=== PATIENT | female | born 1965 | race Caucasian/White ===

== ENCOUNTER → 2016-10-18 | Outpatient (CLI) | payer OTHER ==
[~2016-10-18] MED LIST: /ONDA4TA OR; /PRAV20TA OR; ACET500C OR; ASPI81TA45 OR; CHOL4POW3 PO; CLON0.5T PO; DEXI60CA PO; FIORICET OR; NITR0.4S SL; PRIL40CA OR; TOPI25TA2 OR; TRAM50TA2 OR; VITAMIN D50000 UNT OR; ZANA4CAP OR; ZOCO10TA PO; crestor PO
--- NOTE | 2016-10-18 21:01 | REP ---
MRI BILATERAL HIPS WITHOUT CONTRAST: 10/18/2016. Clinical history: Arthralgias, bilateral hip pain. Comparison x-ray left hip 10/13/2016, right hip 06/06/2013, CT abdomen and pelvis 08/19/2013. Technique: Whole pelvic T1 and T2 STIR images with small field of view fat suppressed T2 coronal, axial and sagittal images and a PD fat-suppressed oblique axial images through the plane of the femoral neck for each hip. Findings: Right hip: The whole pelvic marrow sequences show the lower lumbar vertebral levels, sacrum, and visualized portions of the iliac bones, acetabuli and ischia intact throughout. The hips show no abnormalities in the marrow of the femoral head, neck, trochanters or proximal femoral shafts. No bone bruise, fracture or AVN. No destructive lesion. No pelvic free fluid or mass evident. Bladder nearly empty, but without mass. No pelvic lymphadenopathy. Small bowel loops and colon visible were unremarkable. The intrinsic and extrinsic pelvic, hip, buttock, proximal thigh and paraspinal musculature is symmetric and homogeneous in signal without mass or other finding. Small field of view hip images show a small joint effusion on the right. I do not see significant chondromalacia. No evidence of labral tear or loose body. No significant trochanteric tendinobursitis. A couple of tiny cystic areas in the femoral neck superiorly consistent with synovial herniation pits, benign finding. There is no right inguinal adenopathy or mass. The hamstring tendon insertions on the inferior pubic ramus, the obturator internus and iliopsoas tendon all grossly intact. Impression: 1. Small joint effusion with some minimal hip degenerative change without fracture, bone bruise, loose body, destructive lesion or abnormality in the surrounding pelvic and hip musculature. No intrapelvic mass or free fluid. Marrow signal throughout the visualized lower lumbar spine, pelvis and both hips intact. Left hip: There is no hip joint space narrowing. Only trace fluid in the joint. No definite chondromalacia. No flattening of the femoral head to suggest AVN. Only trace amount of hyperintense T2 signal suggesting mild tendinobursitis about the greater trochanter but no fluid collection noted. The iliopsoas, obturator internus and the hamstring tendon insertions on the inferior pubic ramus are all intact. No inguinal adenopathy or hernia. No subcutaneous mass or muscle signal abnormality. IMPRESSION: 1. Some mild degenerative changes with trochanteric tendinobursitis but no significant chondromalacia, loose body, osteochondral defect, labral abnormality, inguinal hernia or adenopathy. There is mild tendinobursitis about the greater trochanter without fluid collection. Signed by Lars Alcala MD 10/19/2016 01:15 P
== END ==
LOC: M RAD 16:03
PROVIDERS: ATTEND Pain Medicine Interventional Pain Medicine
DX: M16.0 Bilateral primary osteoarthritis of hip (principal); M70.62 Trochanteric bursitis, left hip

== ENCOUNTER → 2016-11-23 | Outpatient (REF) | payer OTHER ==
[2016-11-23 15:08] LABS: PERCENT SATURATION 3.2 % (13.2-37.4)
== END ==
LOC: M LAB REF 14:09
PROVIDERS: ATTEND Internal Medicine Medical Oncology
DX: D50.9 Iron deficiency anemia, unspecified (principal)

== ENCOUNTER → 2016-12-25 | Outpatient (REF) | payer OTHER ==
[2016-12-25 13:02] LABS: PERCENT SATURATION 29.3 % (13.2-37.4)
== END ==
LOC: M LAB REF 12:28
PROVIDERS: ATTEND Internal Medicine Medical Oncology
DX: D50.9 Iron deficiency anemia, unspecified (principal)

== ENCOUNTER → 2017-03-27 | Outpatient (REF) | payer OTHER ==
[2017-03-27 14:14] LABS: PERCENT SATURATION 27.1 % (13.2-45.0)
== END ==
LOC: M LAB REF 13:11
PROVIDERS: ATTEND Internal Medicine Medical Oncology
DX: D50.9 Iron deficiency anemia, unspecified (principal)

== ENCOUNTER → 2017-11-01 | Outpatient (CLI) | payer OTHER ==
[~2017-11-01] MED LIST changes: -/ONDA4TA OR; -/PRAV20TA OR; -ACET500C OR; -ASPI81TA45 OR; -CHOL4POW3 PO; -CLON0.5T PO; -DEXI60CA PO; -FIORICET OR; +LIDOCAINE 1% MDV 20ML VIAL As Ordered; -NITR0.4S SL; -PRIL40CA OR; -TOPI25TA2 OR; -TRAM50TA2 OR; -VITAMIN D50000 UNT OR; -ZANA4CAP OR; -ZOCO10TA PO; -crestor PO
== END ==
LOC: M RADPRO 12:40
DX: N63.21 Unspecified lump in the left breast, upper outer quadrant (principal); Z88.8 Allergy status to other drugs, medicaments and biological substances; Z88.5 Allergy status to narcotic agent; Z79.899 Other long term (current) drug therapy
CPT/HCPCS: 10022

== ENCOUNTER → 2019-03-18 | Outpatient (CLI) | payer OTHER ==
[~2019-03-18] MED LIST changes: +ACET-683 PO; +ACET500C OR; +ASPI81TA45 OR; +CHOL4POW3 PO; +CLON0.5T PO; +CLON0.5T8 PO; +DEXI60CA PO; +DEXI60CA2 PO; +ESTR3TA PO; +FIORCAP3 PO; +FIORICET OR; +HYDR-3713 PO; -LIDOCAINE 1% MDV 20ML VIAL As Ordered; +LIDOCAINE 1% MDV 20ML VIAL As Ordered ONE; +LISI-538 PO; +NITR0.4S SL; +ONDA-1 OR; +PRAV1TAB39 OR; +PRIL40CA OR; +SIMV10TA2 PO; +TOPA100T12 PO; +TOPI25TA2 OR; +TRAM50TA2 OR; +VITA50005 PO; +VITAMIN D50000 UNT OR; +ZANA4CAP OR; +ZOCO10TA PO; +ZOCO40TA PO; +crestor PO
[2019-03-18 11:48] VITALS: BP 120/59
--- NOTE | 2019-03-18 12:06 | REP ---
POSTBIOPSY MAMMOGRAM LEFT BREAST: Postbiopsy mammogram left breast performed in the ML and CC projections following ultrasound guided aspiration of a complex cyst at 1-o'clock position. Correlation is made with mammogram from [facility] 02/17/2019. The previously noted nodular opacity in the upper outer quadrant of the left breast is resolved. At that location, there is a metallic marking clip. Electronically Signed by Pavan Moraes MD 03/18/2019 05:21 P
--- NOTE | 2019-03-18 14:38 | REP ---
ULTRASOUND, LEFT BREAST: Ultrasound left breast performed in the region of 1-o'clock position. Ultrasound from [facility] dated 02/19/2019 shows a mildly complex cyst in that region. Maximum diameter was 8 mm. Real-time sonographic evaluation of the left breast performed at 1-o'clock position currently shows a complex cyst 9 x 4 x 8 mm. Along the inner wall, there is a hyperechoic nodular area of 1 mm in diameter. The complex cyst is subsequently aspirated and a clip left in place. Electronically Signed by Pavan Moraes MD 03/19/2019 10:04 A
--- NOTE | 2019-03-19 09:30 | REP ---
ULTRASOUND GUIDED LEFT BREAST BIOPSY The procedure was performed under the direct supervision of Dr. Moraes The patient has a history of 9 x 4 x 8 mm complex cyst in the 1 o'clock position of the left breast seen on a previous ultrasound performed earlier today. The risks and benefits of the procedure were explained to the patient and informed consent was obtained. The left breast nodule was localized using ultrasound guidance. The skin was prepped and draped in a sterile fashion. 1% Xylocaine was used as a local anesthetic. Using ultrasound guidance an 18 gauge needle was inserted and advanced into the cyst. A few drops of brown colored fluid was withdrawn and sent to the lab for analysis. A marker clip was placed at the biopsy site. The patient tolerated the procedure well and there were no immediate complications. After the appropriate amount of monitored convalescence the patient was discharged from the department. Reviewed by BENJIE Cardoza 03/18/2019 05:01 P Electronically Signed by Pavan Moraes MD 03/19/2019 09:21 A
== END ==
LOC: M IRPRO 10:04
DX: N60.22 Fibroadenosis of left breast (principal); Z79.899 Other long term (current) drug therapy

== ENCOUNTER → 2021-10-17 | Outpatient (CLI) | payer OTHER ==
[~2021-10-17] MED LIST changes: +CLON0.5T2 PO; -CLON0.5T8 PO; -LIDOCAINE 1% MDV 20ML VIAL As Ordered ONE; -LISI-538 PO; +LISI20TA33 PO; -SIMV10TA2 PO; +SIMV10TA21 PO
== END ==
LOC: M RAD 09:46
PROVIDERS: ATTEND Family Medicine
DX: Z12.2 Encounter for screening for malignant neoplasm of respiratory organs (principal); Z87.891 Personal history of nicotine dependence; J84.10 Pulmonary fibrosis, unspecified

== ENCOUNTER → 2022-10-18 | Outpatient (CLI) | payer OTHER | LOC: M RAD 14:36 | PROVIDERS: ATTEND Family Medicine | DX: Z12.2 Encounter for screening for malignant neoplasm of respiratory organs (principal); Z87.891 Personal history of nicotine dependence; J47.1 Bronchiectasis with (acute) exacerbation; J84.10 Pulmonary fibrosis, unspecified ==